=== PATIENT | male | born 1945 | race Caucasian/White ===

== ENCOUNTER 2017-04-09 18:10 | Emergency (ER) | payer MEDICARE ==
[~2017-04-09] VITALS: Ht 172.7 cm; Wt 84.4 kg
[2017-04-09 18:21] VITALS: BP 115/66; PULSE 60; RESP 18; TEMP 97.3; O2SAT 94
[2017-04-09] MEDS ORDERED: CELE20TA PO (18:40)
[2017-04-09] MEDS ORDERED: RENATAB6 PO (18:40)
[2017-04-09] MEDS ORDERED: VITACAP7 PO (18:40)
[2017-04-09] MEDS ORDERED: [UNRECOGNIZED DRUG - CODE] SQ (18:40)
[2017-04-09] MEDS ORDERED: VITA100018 PO (18:40)
[2017-04-09] MEDS ORDERED: WARF-23 PO (18:40)
[2017-04-09] MEDS ORDERED: SENS60TA PO (18:40)
[2017-04-09] MEDS ORDERED: WARF-18 PO (18:40)
[2017-04-09] MEDS ORDERED: LEVE500T8 PO (18:40)
[2017-04-09] MEDS ORDERED: TOPR50TA PO (18:40)
[2017-04-09] MEDS ORDERED: COLA100C5 PO (18:40)
[2017-04-09] MEDS ORDERED: ATOR40TA16 PO (18:40)
[2017-04-09] MEDS ORDERED: PLAV75TA29 PO (18:40)
[2017-04-09] MEDS ORDERED: SEVEL800 PO (18:40)
[2017-04-09] MEDS ORDERED: AMIO0.1T PO (18:40)
[2017-04-09 19:06] LABS: AUTOMATED NEUTROPHIL # 2.5 TH/MM3 (1.8-7.7); BASOPHIL # 0.1 TH/MM3 (0-0.2); BASOPHIL % 3.3 % (0.0-2.0); EOSINOPHIL # 0.1 TH/MM3 (0-0.4); EOSINOPHIL % 1.9 % (0.0-4.0); HEMATOCRIT 26.9 % (39.0-51.0); HEMOGLOBIN 8.7 GM/DL (13.0-17.0); LYMPH % 15.4 % (9.0-44.0); LYMPHOCYTE # 0.6 TH/MM3 (1.0-4.8); MEAN CELL VOLUME 96.2 FL (80.0-100.0); MEAN CORPUSCULAR HEMOGLOBIN 31.1 PG (27.0-34.0); MEAN CORPUSCULAR HGB CONC 32.3 % (32.0-36.0); MEAN PLATELET VOLUME 8.3 FL (7.0-11.0); MONO % 13.9 % (0.0-8.0); MONOCYTE # 0.5 TH/MM3 (0-0.9); NEUT % 65.5 % (16.0-70.0); PLATELET COUNT 170 TH/MM3 (150-450); RED CELL DISTRIBUTION WIDTH 19.3 % (11.6-17.2); WHITE BLOOD COUNT 3.8 TH/MM3 (4.0-11.0)
--- NOTE | 2017-04-09 19:07 | RADRPT ---
EXAM DATE/TIME: 04/09/2017 18:50 [facility] COMPARISON: No previous studies available for comparison. INDICATIONS : Fell backwards on chair and hit top of head. RADIATION DOSE: 63.73 CTDIvol (mGy) MEDICAL HISTORY : Cardiovascular disease. Cerebrovascular disease. Seizures.Hypertension. Anticoagulant therapy. SURGICAL HISTORY : Pacemaker. Coronary artery stent. ENCOUNTER: Initial ACUITY: 1 day PAIN SCALE: 5/10 LOCATION: cranial TECHNIQUE: Multiple contiguous axial images were obtained of the head. Using automated exposure control and adj ustment of the mA and/or kV according to patient size, radiation dose was kept as low as reasonably a chievable to obtain optimal diagnostic quality images. DICOM format image data is available electro nically for review and comparison. FINDINGS: There is no evidence for intracranial hemorrhage, mass effect, mass lesions, or edema. The visualize d bony structures appear intact. Slight degree of brain atrophy is seen. Slight periventricular whit e matter changes are seen nonspecific mostly consistent with chronic small vessel ischemic changes wo rse in the right frontal lobe. There are no signs of acute infarction for technique. Slight scalp he matoma is seen in the high convexity posterior frontal. CONCLUSION: Slight atrophic and small vessel ischemic changes without any evidence for acute hemorrhage or mass effect and small scalp hematoma. Henry Myrick MD on April 09, 2017 at 19:04 Board Certified Radiologist. This report was verified electronically.
--- NOTE | 2017-04-09 19:08 | PD ---
HPI Chief Complaint: Fall Time Seen by Provider: 18:27 Travel History International Travel<30 days: No Contact w/Intl Traveler<30days: No Traveled to known affect area: No History of Present Illness HPI This patient sat down in a chair in his hotel [facility] a chair leg broke and he fell backwards. He struck the back of his head on the wall. He denies LOC but he does have moderately severe headache. He complains of some neck soreness. He also then landed on his left hip has some discomfort there. Suffered a skin tear to the right elbow but not having pain there. Coumadin for history of artificial heart valve. Duration 2 hours. No alleviating factors. No Exacerbating factors. PFSH Past Medical History Hx Anticoagulant Therapy: Yes Cardiovascular Problems: Yes High Cholesterol: Yes Cerebrovascular Accident: Yes Diminished Hearing: No Hypertension: Yes Immunizations Current: Yes Seizures: Yes Tetanus Vaccination: < 5 Years Influenza Vaccination: Yes Past Surgical History Cardiac Surgery: Yes (AORTIC VALVE PACEMAKER DEFIB) Coronary Stent: Yes Joint Replacement: Yes (LT KNEE) Pacemaker: Yes (DEFIB) Other Surgery: Yes (DIALYSIS SHUNT LT ARM) Social History Alcohol Use: No Tobacco Use: No Substance Use: No Allergies-Medications (Allergen,Severity, Reaction): Coded Allergies: amlodipine (Verified Allergy, Unknown, DIZZY, 04/09/17) diphenhydramine (Verified Allergy, Unknown, BRADYCARDIA, 04/09/17) hydrochlorothiazide (Verified Allergy, Unknown, BLISTERS, 04/09/17) verapamil (Verified Allergy, Unknown, BLISTERS, 04/09/17) Reported Meds & Prescriptions Reported Meds & Active Scripts Active Reported Warfarin 2.5 Mg Tab 2.5 Mg PO MON,,,SAT Warfarin 5 Mg Tab 5 Mg PO MO,MON,MON Vitamin D3 (Cholecalciferol) 1,000 Unit Tab 1,000 Units PO DAILY Heidi-Capo Rx (B-Complex W/ C & Folic Acid) 1 Tab 1 Tab PO DAILY Renvela (Sevelamer Carbonate) 800 Mg Tab 2,400 Mg PO TID Toprol XL (Metoprolol Succinate) 50 Mg Tab 50 Mg PO DAILY Levetiracetam 500 Mg Tab 500 Mg PO BID Colace (Docusate Sodium) 100 Mg Capsule 1 Cap PO BID Aranesp (Albumin Free) Inj (Darbepoetin Vincent Inj) 300 Mcg/0.6 Ml Inj 300 Mcg SQ [id number] Plavix (Clopidogrel Bisulfate) 75 Mg Tab 75 Mg PO DAILY Celexa (Citalopram Hydrobromide) 20 Mg Tab 20 Mg PO BID Sensipar (Cinacalcet) 60 Mg Tab 60 Mg PO DAILY B Complex (B-Complex Vitamins) 1 Cap 1 Cap PO DAILY Amiodarone (Amiodarone HCl) 100 Mg Tab 100 Mg PO BID Atorvastatin (Atorvastatin Calcium) 40 Mg Tab 40 Mg PO HS Review of Systems General / Constitutional: No: Fever Eyes: No: Visual changes HENT: Positive: Headaches Cardiovascular: No: Chest Pain or Discomfort Respiratory: No: Shortness of Breath Gastrointestinal: No: Abdominal Pain Genitourinary: No: Dysuria Musculoskeletal: Positive: Arthralgias, Pain Skin: No Rash Neurologic: Positive: Headache, No: Weakness Psychiatric: No: Depression Endocrine: No: Polydipsia Hematologic/Lymphatic: No: Easy Bruising Physical Exam Narrative GENERAL: Well-nourished, well-developed patient in no apparent distress. SKIN: Focused skin assessment reveals no rash and nodules. Skin is Warm and dry. HEAD: Swollen area to the back of the head without active bleeding. Normocephalic. EYES: Pupils equal and round. No scleral icterus. No injection or drainage. ENT: No nasal bleeding or discharge. Mucous membranes pink and moist. NECK: Trachea midline. No JVD. Some mild posterior midline tenderness, c- collar maintained CARDIOVASCULAR: Regular rate and rhythm. Prominent systolic murmur heard of artificial valve . RESPIRATORY: No accessory muscle use. Clear to auscultation. Breath sounds equal bilaterally. GASTROINTESTINAL: Abdomen soft, non-tender, nondistended. Hepatic and splenic margins not palpable. MUSCULOSKELETAL: No obvious deformities. No clubbing. No cyanosis. No edema. Has a skin tear to the right elbow but good range of motion and no bony tenderness. Has some vague tenderness about the left hip but decent range of motion NEUROLOGICAL: Awake and alert. No obvious cranial nerve deficits. Motor grossly within normal limits. Normal speech. PSYCHIATRIC: Appropriate mood and affect; insight and judgment normal. Data Data Last Documented VS Vital Signs Date Time Temp Pulse Resp B/P (MAP) Pulse Ox O2 Delivery O2 Flow Rate FiO2 04/09/17 18:21 97.3 60 18 115/66 (82) [address] Brain W/O Iv Contrast(Rout) (04/09/17 ) Ct Cerv Spine W/O Contrast (04/09/17 ) Hip, Lat Only W Ap Pelvis (04/09/17 ) Iv Access Insert/Monitor (04/09/17 18:36) Complete Blood Count With Diff (04/09/17 18:36) Prothrombin Time / Inr (Pt) (04/09/17 18:36) Basic Metabolic Panel (Bmp) (04/09/17 18:36) Gelatin 12 Mm/7 Mm Top (Gelfoam 12 Mm/7 (04/09/17 19:30) Labs Laboratory Tests Test 04/09/17 18:45 White Blood Count 3.8 TH/MM3 Red Blood Count 2.80 MIL/MM3 Hemoglobin 8.7 GM/DL Hematocrit 26.9 % Mean Corpuscular Volume 96.2 FL Mean Corpuscular Hemoglobin 31.1 PG Mean Corpuscular Hemoglobin Concent 32.3 % Red Cell Distribution Width 19.3 % Platelet Count 170 TH/MM3 Mean Platelet Volume 8.3 FL Neutrophils (%) (Auto) 65.5 % Lymphocytes (%) (Auto) 15.4 % Monocytes (%) (Auto) 13.9 % Eosinophils (%) (Auto) 1.9 % Basophils (%) (Auto) 3.3 % Neutrophils # (Auto) 2.5 TH/MM3 Lymphocytes # (Auto) 0.6 TH/MM3 Monocytes # (Auto) 0.5 TH/MM3 Eosinophils # (Auto) 0.1 TH/MM3 Basophils # (Auto) 0.1 TH/MM3 CBC Comment DIFF FINAL Differential Comment Prothrombin Time 18.3 SEC Prothromb Time International Ratio 1.8 RATIO Blood Urea Nitrogen 84 MG/DL Creatinine 9.00 MG/DL Random Glucose 67 MG/DL Calcium Level 7.8 MG/DL Sodium Level 137 MEQ/L Potassium Level 5.5 MEQ/L Chloride Level 93 MEQ/L Carbon Dioxide Level 28.8 MEQ/L Anion Gap 15 MEQ/L Estimat Glomerular Filtration Rate 6 ML/MIN MDM Medical Decision Making Medical Screen Exam Complete: Yes Emergency Medical Condition: Yes Medical Record Reviewed: Yes Differential Diagnosis Intracranial hemorrhage, concussion, hip or pelvic fracture Narrative Course I have reviewed the patient's electronic medical record. IV placed CBC shows leukopenia and anemia Metabolic profile fits this picture of end-stage renal disease on dialysis. We discussed this at length. They do not want his potassium treated. He is getting dialysis tomorrow morning and knew Elijah Alatorre. They say his potassium is always about 5.5 INR on Coumadin is 1.[address] negative for acute hemorrhage Cervical spine CT shows arthritic change but no acute injury I reviewed his pelvis x-ray which is negative for fracture Reviewed his left hip x-ray which is negative for fracture Gelfoam and Dressing and pressure applied to the right elbow skin tear. Sutures are not amenable to this wound. Patient belatedly mentions some mid back pain. I offered imaging but he declines. I wrote him a dozen pain pills Diagnosis Primary Impression: Head injury due to trauma Qualified Codes: S09.90XA - Unspecified injury of head, initial encounter Additional Impressions: Contusion of hip, left Qualified Codes: S70.02XA - Contusion of left hip, initial encounter End stage renal disease on dialysis Skin tear of right elbow without complication Qualified Codes: S51.011A - Laceration without foreign body of right elbow, initial encounter Additional Instructions: The patient was advised to follow up with their physician and return if they worsen. The patient was warned about potential sedation for the medications they will receive on prescription. Med/Other Pt SpecificInfo: Prescription(s) given Scripts Hydrocodone-Acetaminophen (Hydrocodone-Acetaminophen) 5-325 mg Tab 1 TAB PO Q6H Y for PAIN, #12 TAB 0 Refills Prov: Esa Carter MD 04/09/17 Disposition: 01 DISCHARGE HOME Condition: Stable Esa Carter MD Apr 09, 2017 19:08
[2017-04-09 19:14] LABS: CALCIUM 7.8 MG/DL (8.5-10.1)
[2017-04-09 19:15] LABS: BICARBONATE 28.8 MEQ/L (21.0-32.0)
[2017-04-09 19:16] LABS: INTERNATIONAL NORMALIZED RATIO 1.8 RATIO; PROTHROMBIN TIME - PATIENT 18.3 SEC (9.8-11.6)
[2017-04-09] MEDS ORDERED: GELATIN 12 MM/7 MM FOAM TOPICAL ONE (19:30)
--- NOTE | 2017-04-09 19:40 | RADRPT ---
EXAM DATE/TIME: 04/09/2017 18:50 [facility] COMPARISON: No previous studies available for comparison. INDICATIONS : Fell backwards on chair and hit top of head. RADIATION DOSE: 26.83 CTDIvol (mGy) MEDICAL HISTORY : Cardiovascular disease. Cerebrovascular disease. Seizures.Hypertension. Anticoagulant therapy. SURGICAL HISTORY : Pacemaker. Coronary artery stent. ENCOUNTER: Initial ACUITY: 1 day PAIN SCALE: 5/10 LOCATION: neck TECHNIQUE: Volumetric scanning of the cervical spine was performed. Multiplanar reconstructions in the sagittal, coronal and oblique axial planes were performed. Using automated exposure control and adjustment o f the mA and/or kV according to patient size, radiation dose was kept as low as reasonably achievable to obtain optimal diagnostic quality images. DICOM format image data is available electronically f or review and comparison. FINDINGS: No definite fracture is seen for technique. C2-C3: There is no evidence for any significant compromise to the thecal sac, or the exiting nerve roots. N o appreciable thecal sac stenosis is seen. The neural foramina and lateral recess appear patent bila terally. C3-C4: Slight degenerative changes are seen within the disc space and facets. There is no evidence for any s ignificant compromise to the thecal sac, or the exiting nerve roots. No appreciable thecal sac steno sis is seen. The neural foramina and lateral recess appear patent bilaterally. C4-C5: There is slight neural foramina compromise on the right due to asymmetrical bulging disc and hypertro phic changes. Moderate degenerative changes are seen within the disc space and facets. Slight bulging disc and hypertrophic changes are seen with indentation on the thecal sac and no significant comprom ise to the thecal sac. C5-C6: Moderate degenerative changes are seen within the disc space and facets. There is slight neural marisa jeremiah compromise bilaterally due to bulging disc and hypertrophic changes. Slight bulging disc and hype rtrophic changes are seen with indentation on the thecal sac and no significant compromise to the the sawyer sac. C6-C7: Moderate degenerative changes are seen within the disc space and facets. There is slight neural marisa jeremiah compromise on the left due to asymmetrical bulging disc and hypertrophic changes. Slight bulging disc and hypertrophic changes are seen with indentation on the thecal sac and no significant compromi se to the thecal sac. C7-T1: There is no evidence for any significant compromise to the thecal sac, or the exiting nerve roots. N o appreciable thecal sac stenosis is seen. The neural foramina and lateral recess appear patent bila terally. CONCLUSION: Neural foramina compromise at multiple levels without any significant thecal sac stenosis. Henry Myrick MD on April 09, 2017 at 19:33 Board Certified Radiologist. This report was verified electronically.
--- NOTE | 2017-04-09 19:41 | RADRPT ---
EXAM DATE/TIME: 04/09/2017 19:10 [facility] COMPARISON: No previous studies available for comparison. INDICATIONS : Fell out of chair onto left hip. MEDICAL HISTORY : None. SURGICAL HISTORY : None. ENCOUNTER: Initial ACUITY: 1 day PAIN SCORE: 5/10 LOCATION: Left hip. FINDINGS: No definite fractures, or dislocations are identified. No definite lytic or sclerotic lesion is seen . The joint spaces are well maintained. Chronic atherosclerotic calcifications are seen involving th e visualized arteries. CONCLUSION: No definite fracture is seen for technique. Henry Myrick MD on April 09, 2017 at 19:38 Board Certified Radiologist. This report was verified electronically.
[2017-04-09] MEDS ORDERED: HYDR-3516 PO (19:47)
[2017-04-09 20:19] VITALS: BP 132/70
== END 2017-04-09 20:20 | disposition home or self-care (01) ==
LOC: PHED 18:10
DX: S09.90XA Unspecified injury of head, initial encounter (principal); S70.02XA Contusion of left hip, initial encounter; I12.0 Hypertensive chronic kidney disease with stage 5 chronic kidney disease or end stage renal disease; N18.6 End stage renal disease; S51.011A Laceration without foreign body of right elbow, initial encounter; E78.00 Pure hypercholesterolemia, unspecified; W07.XXXA Fall from chair, initial encounter; Z95.2 Presence of prosthetic heart valve; Z79.01 Long term (current) use of anticoagulants; Z86.73 Personal history of transient ischemic attack (TIA), and cerebral infarction without residual deficits; Z95.5 Presence of coronary angioplasty implant and graft; Z99.2 Dependence on renal dialysis
CPT/HCPCS: 12001; 70450; 72125; 73501; 80048; 85025; 85610